=== PATIENT | female | born 1965 ===

== ENCOUNTER 2025-06-26 06:00 | Day surgery (SDC) | payer OTHER ==
[2025-06-22 12:38] VITALS: BP 140/84
[~2025-06-26] VITALS: Ht 165.1 cm; Wt 81.6 kg
[~2025-06-26 06:00] MED LIST: ACID REDUCER20 M1 PO; CARDIZEM30 MG PO; IPRAT-ALBUT 0.5-3 ML IH; NABUMETONE750 MG PO; PROAIR RESPICL90 MCG IH; PROMETHAZINE W473 ML PO; SINGULAIR10 MG PO; ZETIA10 MG PO
[2025-06-26] MEDS ORDERED: HEMOSTATIC MATRIX 1 KIT KIT TOP ONE (10:00)
[2025-06-26] MEDS ORDERED: DIBUCAINE 30 GM TUBE RECTAL ONE (10:00)
[2025-06-26] MEDS ORDERED: BUPIVACAINE HCL 30 ML VIAL IJ ONE (10:00)
[2025-06-26] MEDS ORDERED: LIDOCAINE HCL 1%/EPINEPHRINE 20ML VIAL IJ ONE (10:00)
[2025-06-26] MEDS ORDERED: POVIDONE-IODINE 118 ML BOTT TOP ONE (10:00)
[2025-06-26] MEDS ORDERED: CEFTRIAXONE SODIUM 2,000 MG VIAL IV ONE (10:15)
[2025-06-26] MEDS ORDERED: METRONIDAZOLE/SODIUM CHLORIDE 500 MG/100 ML PIGGYBACK IV ONE (10:15)
[2025-06-26] MEDS ORDERED: TRAM1TAB98 PO (12:26)
[2025-06-26] MEDS ORDERED: NEURONTIN300 MG PO (12:26)
[2025-06-26] MEDS ORDERED: COLACE100 MG PO (12:26)
== END 2025-06-26 13:50 | disposition home or self-care (01) ==
LOC: CIR.AMB 06:00
PROVIDERS: ATTEND Surgery
DX: K64.1 Second degree hemorrhoids (principal); K64.4 Residual hemorrhoidal skin tags; K62.89 Other specified diseases of anus and rectum